=== PATIENT | male | born 1965 | race Caucasian/White ===

== ENCOUNTER 2023-04-15 01:18 | Inpatient (IN) | payer OTHER, MEDICAID ==
[~2023-04-15] VITALS: Ht 175.3 cm; Wt 97.5 kg
[2023-04-15 01:26] VITALS: BP 143/87; PULSE 105; RESP 17; TEMP 97.4; O2SAT 95
[2023-04-15 03:43] LABS: ALBUMIN 2.5 g/dL (3.4-5.0); TOTAL BILIRUBIN 0.2 mg/dL (0.0-1.0)
[2023-04-15 03:47] LABS: ANION GAP 13.5 (8-16); CALCIUM 8.9 mg/dL (8.5-10.1); POTASSIUM 4.5 mmol/L (3.5-5.1)
[2023-04-15 04:02] LABS: BASOPHILS # (AUTO) 0.1 K/uL (0.00-0.22); BASOPHILS % (AUTO) 1.3 % (0.0-2.0); EOSINOPHILS # (AUTO) 0.3 K/uL (0-0.4); EOSINOPHILS % (AUTO) 3.6 % (0.0-4.0); HEMATOCRIT 38.9 % (36-52); HEMOGLOBIN 13.1 g/dL (12.0-18.0); LYMPHOCYTES # (AUTO) 1.9 K/uL (2.0-11.5); LYMPHOCYTES % (AUTO) 26.4 % (20.5-51.1); MEAN CORPUSCULAR HEMOGLOBIN 30 pg (27-31); MEAN CORPUSCULAR HGB CONC 34 g/dL (33-37); MEAN CORPUSCULAR VOLUME 87.8 fL (80-94); MONOCYTES # (AUTO) 0.4 K/uL (0.8-1.0); MONOCYTES % (AUTO) 6.2 % (1.7-9.3); NEUTROPHILS # (AUTO) 4.4 K/uL (1.8-7.7); NEUTROPHILS % (AUTO) 62.5 % (42.2-75.2); PLATELET COUNT (AUTO) 222 K/uL (140-450); RED BLOOD CELL COUNT(AUTO) 4.44 MIL/uL (4.20-6.10); RED CELL DISTRIBUTION WIDTH 14.1 % (11.6-13.7)
[2023-04-15] MEDS ORDERED: INSULIN REGULAR, HUMAN 100 UNIT/ML VIAL IVP ONE (04:10)
[2023-04-15] MEDS ORDERED: NACL 0.9% 500 ML IV ONE (04:20)
[2023-04-15] MEDS ORDERED: ACETAMINOPHEN 325 MG TAB PO PRN (13:20)
[2023-04-15] MEDS ORDERED: ONDANSETRON 4 MG/2 ML VIAL IVP PRN (13:20)
[2023-04-15] MEDS ORDERED: DEXTROSE 50% 50 ML SYR IVP PRN (13:25)
[2023-04-15] MEDS ORDERED: PIPERACILLIN/TAZOBACTAM 3.375 GM VIAL IV ONE ×2 (13:38→21:36)
[2023-04-15] MEDS ORDERED: INSU100V4 SQ (13:59)
[2023-04-15] MEDS ORDERED: ATOR20TA PO (13:59)
[2023-04-15] MEDS ORDERED: ASCO500T95 PO (13:59)
[2023-04-15] MEDS ORDERED: INSU-1343 SQ (13:59)
[2023-04-15] MEDS ORDERED: MULT-2611 PO (13:59)
[2023-04-15] MEDS ORDERED: FURO-570 PO (13:59)
[2023-04-15] MEDS ORDERED: GABA300C PO (13:59)
[2023-04-15] MEDS ORDERED: DOCU-3 PO (13:59)
[2023-04-15] MEDS: NACL 0.9% 1,000 ML IV SCH (14:10)
[2023-04-15] MEDS: PIPERACILLIN/TAZOBACTAM 3.375 GM in DEXTROSE 5% 50 ML IV SCH ×2 (14:16→21:48)
[2023-04-15] MEDS: BLOOD GLUCOSE MONITORING 1 DEV DEV FS SCH ×2 (16:30→22:00)
[2023-04-15] MEDS ORDERED: hydrALAZINE 25 MG TAB PO SCH (18:00)
[2023-04-15] MEDS: INSULIN LISPRO SLIDING SCALE 100 UNITS/ML VIAL SUBQ PRN ×2 (19:06→22:28)
[2023-04-16] MEDS: MORPHINE SULFATE 2 MG/ML SYR IVP PRN (00:03)
[2023-04-16] MEDS: NACL 0.9% 1,000 ML IV SCH ×3 (04:25→22:08)
[2023-04-16] MEDS ORDERED: PIPERACILLIN/TAZOBACTAM 3.375 GM VIAL IV ONE (05:49)
[2023-04-16] MEDS: PIPERACILLIN/TAZOBACTAM 3.375 GM in DEXTROSE 5% 50 ML IV SCH ×3 (05:54→22:08)
[2023-04-16 06:43] LABS: BASOPHILS # (AUTO) 0.1 K/uL (0.00-0.22); EOSINOPHILS # (AUTO) 0.3 K/uL (0-0.4); EOSINOPHILS % (AUTO) 3.7 % (0.0-4.0); HEMATOCRIT 38.3 % (36-52); HEMOGLOBIN 12.9 g/dL (12.0-18.0); LYMPHOCYTES # (AUTO) 2.1 K/uL (2.0-11.5); LYMPHOCYTES % (AUTO) 31.1 % (20.5-51.1); MEAN CORPUSCULAR HEMOGLOBIN 30 pg (27-31); MEAN CORPUSCULAR HGB CONC 34 g/dL (33-37); MEAN CORPUSCULAR VOLUME 87.2 fL (80-94); MONOCYTES # (AUTO) 0.4 K/uL (0.8-1.0); MONOCYTES % (AUTO) 5.9 % (1.7-9.3); NEUTROPHILS % (AUTO) 58.3 % (42.2-75.2); PLATELET COUNT (AUTO) 208 K/uL (140-450); RED BLOOD CELL COUNT(AUTO) 4.39 MIL/uL (4.20-6.10); RED CELL DISTRIBUTION WIDTH 14.3 % (11.6-13.7); WHITE BLOOD COUNT (AUTO) 6.8 K/uL (4.8-10.8)
[2023-04-16] MEDS: hydrALAZINE 25 MG TAB PO PRN (07:06)
[2023-04-16 07:12] LABS: ALBUMIN 2.2 g/dL (3.4-5.0); ANION GAP 10.6 (8-16); CALCIUM 8.2 mg/dL (8.5-10.1); CARBON DIOXIDE 26.4 mmol/L (21-32); CREATININE 0.8 mg/dL (0.6-1.3); MAGNESIUM 1.8 mg/dL (1.8-2.4); TOTAL BILIRUBIN 0.4 mg/dL (0.0-1.0)
[2023-04-16] MEDS: BLOOD GLUCOSE MONITORING 1 DEV DEV FS SCH ×4 (07:55→22:03)
[2023-04-16] MEDS: INSULIN LISPRO SLIDING SCALE 100 UNITS/ML VIAL SUBQ PRN ×4 (08:10→22:13)
[2023-04-16 09:45] VITALS: PULSE 89; RESP 17; O2SAT 99
[2023-04-16 11:00] VITALS: BP 159/82; PULSE 89; RESP 17; TEMP 97.2; O2SAT 99
[2023-04-16 16:00] VITALS: BP 142/65; PULSE 90; RESP 18; TEMP 98.3; O2SAT 95
[2023-04-16 20:00] VITALS: PULSE 72; RESP 18; O2SAT 96
[2023-04-16] MEDS ORDERED: MORPHINE SULFATE 2 MG/ML SYR IVP PRN (20:05)
[2023-04-17] VITALS: BP 140/82; PULSE 77; RESP 18; TEMP 98; O2SAT 96
[2023-04-17] MEDS: MORPHINE SULFATE 2 MG/ML SYR IVP PRN (00:26)
[2023-04-17] MEDS: PIPERACILLIN/TAZOBACTAM 3.375 GM in DEXTROSE 5% 50 ML IV SCH ×3 (05:43→22:04)
[2023-04-17 06:36] LABS: BASOPHILS # (AUTO) 0.1 K/uL (0.00-0.22); BASOPHILS % (AUTO) 0.9 % (0.0-2.0); EOSINOPHILS # (AUTO) 0.3 K/uL (0-0.4); EOSINOPHILS % (AUTO) 3.9 % (0.0-4.0); HEMOGLOBIN 13.2 g/dL (12.0-18.0); LYMPHOCYTES # (AUTO) 2.5 K/uL (2.0-11.5); LYMPHOCYTES % (AUTO) 34.6 % (20.5-51.1); MEAN CORPUSCULAR HEMOGLOBIN 30 pg (27-31); MEAN CORPUSCULAR HGB CONC 34 g/dL (33-37); MEAN CORPUSCULAR VOLUME 87.2 fL (80-94); MONOCYTES # (AUTO) 0.4 K/uL (0.8-1.0); MONOCYTES % (AUTO) 6.1 % (1.7-9.3); NEUTROPHILS % (AUTO) 54.5 % (42.2-75.2); PLATELET COUNT (AUTO) 217 K/uL (140-450); RED BLOOD CELL COUNT(AUTO) 4.48 MIL/uL (4.20-6.10); RED CELL DISTRIBUTION WIDTH 14.1 % (11.6-13.7); WHITE BLOOD COUNT (AUTO) 7.3 K/uL (4.8-10.8)
[2023-04-17] MEDS: BLOOD GLUCOSE MONITORING 1 DEV DEV FS SCH ×4 (06:37→21:06)
[2023-04-17] MEDS: INSULIN LISPRO SLIDING SCALE 100 UNITS/ML VIAL SUBQ PRN ×4 (06:41→21:13)
[2023-04-17 08:00] VITALS: BP 162/84; PULSE 87; RESP 18; TEMP 97.5; O2SAT 95
[2023-04-17] MEDS: hydrALAZINE 25 MG TAB PO PRN (08:28)
[2023-04-17] MEDS: ATORVASTATIN 20 MG TAB PO SCH (08:29)
[2023-04-17] MEDS: GABAPENTIN 300 MG CAP PO SCH (08:29)
[2023-04-17] MEDS: ASCORBIC ACID 500 MG TAB PO SCH (08:29)
[2023-04-17] MEDS: DOCUSATE SODIUM 100 MG GELCAP PO SCH (08:30)
[2023-04-17] MEDS: FUROSEMIDE 40 MG TAB PO SCH (08:30)
[2023-04-17] MEDS: INSULIN LANTUS 100 UNITS/ML 10 ML VIAL SUBQ SCH (08:39)
[2023-04-17] MEDS ORDERED: INSULIN DEGLUDEC 50 UNIT SQ SCH (09:00)
[2023-04-17 10:35] LABS: CALCIUM 8.2 mg/dL (8.5-10.1); CARBON DIOXIDE 25.9 mmol/L (21-32); CREATININE 0.8 mg/dL (0.6-1.3); POTASSIUM 3.9 mmol/L (3.5-5.1)
[2023-04-17] MEDS ORDERED: GAUZE TP SCH (13:00)
[2023-04-17] MEDS: NACL 0.9% 1,000 ML IV SCH (13:26)
[2023-04-17 16:00] VITALS: BP 146/71; PULSE 90; RESP 18; TEMP 98.6; O2SAT 96
[2023-04-17 20:00] VITALS: PULSE 88; RESP 18; O2SAT 96
[2023-04-17 20:50] VITALS: BP 133/76; PULSE 88; RESP 18; TEMP 99; O2SAT 96
[2023-04-17] MEDS ORDERED: DOCUSATE SODIUM 100 MG GELCAP PO ONE (22:15)
[2023-04-18] MEDS ORDERED: MELATONIN 3 MG TAB PO PRN (00:10)
[2023-04-18 04:00] VITALS: BP 119/75; PULSE 86; RESP 18; TEMP 98; O2SAT 94
[2023-04-18] MEDS: PIPERACILLIN/TAZOBACTAM 3.375 GM in DEXTROSE 5% 50 ML IV SCH (05:31)
[2023-04-18] MEDS: NACL 0.9% 1,000 ML IV SCH ×2 (05:46→08:00)
[2023-04-18] MEDS: INSULIN LISPRO SLIDING SCALE 100 UNITS/ML VIAL SUBQ PRN ×2 (07:08→11:32)
[2023-04-18] MEDS: BLOOD GLUCOSE MONITORING 1 DEV DEV FS SCH ×2 (07:37→11:29)
[2023-04-18 08:00] VITALS: BP 129/65; PULSE 78; RESP 18; TEMP 98.2; O2SAT 98
[2023-04-18] MEDS: GABAPENTIN 300 MG CAP PO SCH (08:25)
[2023-04-18] MEDS: FUROSEMIDE 40 MG TAB PO SCH (08:26)
[2023-04-18] MEDS: ATORVASTATIN 20 MG TAB PO SCH (08:26)
[2023-04-18] MEDS: ASCORBIC ACID 500 MG TAB PO SCH (08:26)
[2023-04-18] MEDS: DOCUSATE SODIUM 100 MG GELCAP PO SCH (08:27)
[2023-04-18] MEDS: INSULIN LANTUS 100 UNITS/ML 10 ML VIAL SUBQ SCH (08:31)
[2023-04-18] MEDS ORDERED: DOCUSATE SODIUM 100 MG GELCAP PO SCH (09:00)
== END 2023-04-18 11:40 | DRG 638 ==
LOC: MED 01:18 → MMU 13:20 → MTU 04-16 06:10
PROVIDERS: ADMIT Hospitalist; ATTEND Hospitalist
DX: E11.621 Type 2 diabetes mellitus with foot ulcer (principal); E44.0 Moderate protein-calorie malnutrition; L03.116 Cellulitis of left lower limb; E11.65 Type 2 diabetes mellitus with hyperglycemia; I10 Essential (primary) hypertension; Z68.31 Body mass index [BMI] 31.0-31.9, adult
CPT/HCPCS: 36415; 73630; 80048; 80053; 80076; 82948; 83036; 83735; 85025; 87081; 96374; 96375; 97112; 97116; 97163-GP; 97530; 99285; J1815; J2270; J2543; J7060